=== PATIENT | female | born 2000 ===

== ENCOUNTER 2021-09-10 16:12 | Emergency (ER) | payer MEDICAID, SELFPAY ==
--- NOTE | ~2021-09-10 | XR_ITS ---
EXAMINATION: XR CHEST CLINICAL INFORMATION: Chest pressure. COMPARISON: None TECHNIQUE: 2 views of the chest were obtained. FINDINGS: No significant abnormality is noted involving the heart, lungs, mediastinum, bony thorax or soft tissues. XR/XR chest 2V IMPRESSION: Unremarkable examination.
[2021-09-10 17:40] VITALS: BP 129/53; PULSE 74; RESP 17; TEMP 37; O2SAT 95; BMI 19.5
--- NOTE | 2021-09-10 18:37 | ED.GENADULT ---
HPI - General Adult General Chief complaint: Ear Problems Stated complaint: Chest and ear pressure X1 Year Time Seen by Provider: 09/10/21 18:37 Source: patient Mode of arrival: ambulatory Limitations: no limitations History of Present Illness HPI narrative: Patient is a 21 year old female presenting to the emergency department today with chest pressure and ear congestion. Patient states that on and off for the last year, she has had chest pressure and ear congestion. Patient states that she has not been evaluated for this lately and when she called her PCP, they told her to report to the ED. Patient denies any current dizziness, lightheadedness, abdominal pain, nausea, vomiting, fever, chills, blurry vision, double vision, loss of vision, chest pain, difficulty breathing, shortness of breath, back pain, night sweats, pain with urination, increased urinary frequency, increased urinary urgency, blood in her urine or stool, vaginal discharge, vaginal bleeding, syncope or a near syncopal episode, recent trauma or falls, bowel incontinence, bladder incontinence, bowel retention, bladder retention, or any other complaints at this time. Onset (ago): year(s) Relieving factors: none Exacerbating factors: none Associated symptoms: denies other symptoms Treatments prior to arrival: none Related Data Allergies Allergy/AdvReac Type Severity Reaction Status Date / Time No Known Allergies Allergy Verified 09/10/21 18:56 Review of Systems Constitutional: Constitutional: Reports no additional constitutional complaints, Denies chills, Denies fever(s) and Denies night sweats Eyes: Eyes: Reports no additional eye complaints, Denies blurry vision, Denies change in vision, Denies diplopia, Denies eye discharge, Denies loss of vision and Denies eye pain ENT: Denies dizziness Cardiovascular: Cardiovascular: Reports no additional cardiovascular complaints, Denies chest pain, Denies lightheadedness, Denies Loss of Consciousness and Denies dyspnea Respiratory: Respiratory: Reports no additional respiratory complaints and Denies dyspnea Gastrointestinal: Gastrointestinal: Reports no additional gastrointestinal complaints, Denies abdominal pain, Denies melena, Denies hematochezia, Denies change in bowel habits and Denies change in stool character Genitourinary: Genitourinary: Denies hematuria, Denies urinary frequency, Denies dysuria, Denies urinary incontinence, Denies urinary hesitancy and Denies urinary urgency Musculoskeletal: Musculoskeletal: Reports no additional musculoskeletal complaints, Denies numbness and Denies tingling Neurologic: Denies dizziness, Denies loss of vision, Denies numbness and Denies tingling Psychiatric: Psychiatric: Reports no additional psychiatric complaints Endocrine: Endocrine: Reports no additional endocrine complaints Hematologic/Lymphatic: Hematologic/Lymphatic: Reports no additional hematologic/lymphatic complaints Allergic/Immunologic: Allergic/Immunologic: Reports no additional allergic/immunologic complaints [facility] [place] Past Medical History Attestation statement: The following information was validated with the patient. Source: old records reviewed Social History Social History Advance Directives: No Advance Directives Information Provided: No Physical Exam ED Vital Signs: Vital Signs - 24 hr 09/10/21 17:40 Temperature 98.6 F Pulse Rate 74 Respiratory Rate 17 Blood Pressure 129/53 L Pulse Oximetry 95 BMI result Body Mass Index 19.5 Const General: cooperative, no acute distress, alert and awake Nutritional Appearance: well nourished Orientation/consciousness: patient oriented x3 Limitations: no limitations HENMT Head: Yes normal to inspection and Yes atraumatic Ears: hearing grossly normal bilaterally and external ears normal General nose exam: Normal external nose present, no nasal discharge noted and no epistaxis Face and sinus: Yes normal facial exam, No abrasion and No laceration Mouth: Normal oral and palatal mucosa present, no drooling and no muffled voice Eyes General: appearance normal, both eyes and all related structures Periorbital: periorbital findings normal Eyelids: Yes eyelids normal Conjunctivae: conjunctivae normal Pupils: Equal, round and reactive pupils present EOM: EOMs intact bilaterally Neck Neck: Yes normal visual inspection, Yes full ROM and Yes no lymphadenopathy Chest Chest palpation & inspection: normal inspection of the chest Resp Effort & Inspection: normal respiratory effort and able to speak in complete sentences Cardio Rate: regular rate Rhythm: regular rhythm GI Inspection: Yes normal to inspection Neuro General: patient oriented x3 and moves all extremities Cranial nerves: Yes Equal, round and reactive pupils present Cognition (Neuro): normal cognition Motor exam (neuro): 5/5 motor strength present throughout Sensory Exam: Normal double simultaneous stimulation for sensation Coordination: [id number] test normal Extrem General: Yes normal to inspection, Yes full ROM and Yes capillary refill normal Psych Appearance: grossly normal Mental Status: mental status grossly normal Affect: normal affect Attitude: cooperative Thought process: Normal thought process present Thought content: Normal thought content present Insight: Good insight present (Psych) Medical Decision Making MDM Narrative Medical decision making narrative: Patient is a 21 year old female presenting to the emergency department today with chest pressure and ear pain. Patient's physical exam was unremarkable including a normal cardiac exam and HEENT exam. Patient's EKG was unremarkable. Patient's chest x-ray showed no acute process. I explained my physical exam findings as well as all test results to the patient. I answered all questions asked by the patient. I stressed the importance of the patient taking her medication as prescribed. I stressed the importance of the patient following up with her primary care provider and an ENT provider. I stressed the importance of the patient returning to the emergency department immediately if her symptoms were to worsen or if she were to develop any dizziness, shortness of breath, difficulty breathing, chest pain, blurry vision, loss of vision, nausea, vomiting, abdominal pain, fever, chills, back pain, or any other complaints. Patient verbalized agreement and understanding with this treatment plan and discharge. Differential Diagnosis Differential Diagnosis: atypical chest pain, ear pain Medical Records Medical records reviewed: Yes I reviewed the patient's medical records. ECG Data Attestation: I personally reviewed and interpreted this ECG as follows: Prior ECG tracings: not available for review Interpretation: Vent. Rate: 070 BPM ? ? Atrial Rate: 070 BPM P-R Int: 156 ms? QRS Dur: 086 ms QT Int: 386 ms ? ? ? P-R-T Axes: 065 076 059 degrees QTc Int: 416 ms Normal sinus rhythm with sinus arrhythmia Normal ECG No previous ECGs available Discharge Plan Discharge Clinical Impression: Acute ear pain, Chest pain Patient Disposition: Home, Self-Care Instructions: Chest Pain (ED), Chest Pain (DC), Earache (ED), Chest Wall Pain (ED) Additional Instructions: Call [phone] to follow up with an ENT specialist. Follow up with your primary care provider. Return to the emergency department immediately if your symptoms worsen or if you develop any dizziness, shortness of breath, difficulty breathing, chest pain, blurry vision, loss of vision, nausea, vomiting, abdominal pain, fever, chills, back pain, or any other complaints. Referrals: Syeda Danielle MD [Primary Care Provider] - 2 days Interventions: ED Discharge Assessment Last Done: 09/10/21 20:00 Discharge Date/Time: 09/10/21 20:02 Print Language: Irish
--- NOTE | 2021-09-10 18:56 | ECG_ITS ---
Test Reason : CHEST PRESSURE Blood Pressure : / mmHG Vent. Rate : 070 BPM Atrial Rate : 070 BPM P-R Int : 156 ms QRS Dur : 086 ms QT Int : 386 ms P-R-T Axes : 065 076 059 degrees QTc Int : 416 ms Normal sinus rhythm with sinus arrhythmia Normal ECG No previous ECGs available Referred By: Naomy Madsen Electronically Signed By:NELIDA LOPEZ
== END 2021-09-10 20:02 | disposition home or self-care (01) ==
PROVIDERS: Emergency Provider Emergency Medicine; PCP Internal Medicine
DX: R07.9 Chest pain, unspecified (principal); H92.03 Otalgia, bilateral
CPT/HCPCS: 71046; 93005; 99283; 99284

== ENCOUNTER 2024-03-19 11:55 | Emergency (ER) | payer OTHER, SELFPAY ==
[2024-03-19 11:58] VITALS: BP 123/80; PULSE 96; RESP 16; TEMP 36.8; O2SAT 99; BMI 21.0
--- NOTE | 2024-03-19 12:00 | ED.GENADULT ---
HPI - General Adult General Chief complaint: General Medical Stated complaint: Exposed to rabies Time Seen by Provider: 03/19/24 12:04 Source: patient Mode of arrival: ambulatory Limitations: no limitations History of Present Illness ED Provider: PAVEL PAL PA-C HPI narrative: 24 year old female with no significant pmhx presents to the ED today after rabies exposure. 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 Patient reports holding the cat numerous times. The cat did not bite/ scratch/ lick the patient. She currently has no physical complaints. She is requesting to be vaccinated for rabies at this time. Related Data Allergies Allergy/AdvReac Type Severity Reaction Status Date / Time No Known Allergies Allergy Verified 03/19/24 12:01 Review of Systems Review of Systems: Constitutional: No fever, chills, fatigue, night sweats, weight changes ENT/Mouth: No ear pain, hearing loss, nasal congestion, sinus pain, rhinorrhea, sore throat Eyes: No eye pain, swelling, redness, vision changes, discharge Cardio: No chest pain, palpitations, GAMBOA, orthopnea, peripheral edema Pulm: No SOB, cough, sputum, wheezing, dyspnea, hemoptysis GI: No nausea, vomiting, hematemesis, abdominal pain, diarrhea, constipation, hematochezia, melena : No irregular bleeding, dysuria, frequency, urgency, hesitancy, hematuria, flank pain, urinary flow changes, urinary incontinence or retention MSK: No back pain, neck pain, joint pain, myalgias Skin: No lesions, rashes Neuro: No weakness, numbness, paresthesias, LOC, dizziness, headache Psych: No anxiety/panic, depression, SI/HI, AH/VH All other systems reviewed and are negative. [facility] Past Medical History Attestation statement: The following information was validated with the patient. Source: old records reviewed and nursing notes reviewed Physical Exam ED Vital Signs: Vital Signs - 24 hr 03/19/24 11:58 03/19/24 14:26 03/19/24 14:26 Temperature 98.3 F 97.9 F 97.9 F Pulse Rate 96 98 98 Respiratory Rate 16 18 18 Blood Pressure 123/80 132/81 132/81 Pulse Oximetry 99 100 100 Oxygen Delivery Method Room Air Room Air Room Air BMI result Body Mass Index 21.0 Vital signs stable. General: Well appearing, in no acute distress. Skin: Warm, dry, intact. No rashes or lesions. Head: Normocephalic, atraumatic. EENT: Hearing is intact b/l. Conjunctiva clear. Sclera is anicteric. PERRLA. EOM intact. Moist mucous membranes.? Neck: Supple without LAD. FROM. Cardiac: Chest wall symmetric. RRR. Lungs: Normal respiratory effort without accessory muscle use. CTA bilaterally. Abdomen: Soft, non-tender, non-distended Back: No midline spinous or paraspinal tenderness. No step off deformity. Ext: Upper and lower extremities atraumatic, without tenderness, deformity, swelling or erythema. Full ROM throughout. Neuro: AOx3. Normal speech. Sensation intact to light touch. NV intact distally. Ambulating with steady gait. Psych: Appropriate mood and affect. Responds appropriately to questions. Medications Administered Discontinued Medications Generic Name Dose Route Start Last Admin Trade Name Freq PRN Reason Stop Dose Admin Rabies Immune Globulin 1,112 unit 03/19/24 12:06 03/19/24 13:56 Rabies Immune Globulin/Pf 900 Unit/3 Ml Vial 20 unit/kg (1112 unit) 03/19/24 12:07 1,112 unit IM Administration ONCE ONE Rabies Vaccine 1 ml 03/19/24 13:45 03/19/24 13:55 Rabies Vaccine (Pcec)/Pf 1 Ml Vial IM 03/19/24 13:46 1 ml .ONCE ONE Administration Rabies Vaccine Human Diploid Cell 1 ml 03/19/24 12:06 03/19/24 13:31 Rabies Vaccine, Human Diploid (Imovax) 1 Ml Vial IM 03/19/24 12:07 Not Given .ONCE ONE Medical Decision Making Medical Decision Making MDM Narrative: 24 year old female with no significant pmhx presents to the ED today after rabies exposure. Vital signs are stable. She is well appearing, in NAD. Exam benign. Given exposure 7-10 days ago with patient being asymptomatic, likelihood that patient has contracted rabies is very low. After discussion, patient would still like to receive the rabies vaccination series. I discussed risks vs benefits of vaccination with patient. She is agreeable with vaccination at this time. This was also discussed with my attending Dr. Strickland who feels as though vaccination is reasonable at this time. Plan: rabies series Differential Diagnosis Differential Diagnoses: The differential diagnosis associated with the presentation includes as above. Admission/Observation not indicated. Social Determinants Patient?s care significantly limited by Social Determinants of Health including: Other Social Determinant of Health Discharge Plan Discharge Clinical Impression: Exposure to rabies Patient Disposition: Home, Self-Care Instructions: Rabies Vaccine (By injection), Rabies Immune Globulin (By injection), Rabies (ED) Additional Instructions: You were evaluated in the ED today following rabies exposure. You were provided with rabies immune globulin and your first rabies vaccination. As discussed, you will have to continue following up with infusion center for subsequent vaccinations. Return with new or worsening symptoms. In the case of an emergency call [phone]. [place]ies [place] with [place] [facility] [place] Upon discharge from the ED today, you will be contacted by the Infusion Center to schedule your follow up Rabies vaccines. You will need a total of 3 more injections. If for some reason you do not receive a call, please call the Infusion Center directly at [phone]. Follow up with your primary care provider after completion of the vaccine to have a titer drawn to ensure the vaccines effectiveness. Stand Alone Forms: Work/School Release Interventions: ED Discharge Assessment Last Done: 03/19/24 14:26 Discharge Date/Time: 03/19/24 14:40 Print Language: Zambian
--- NOTE | 2024-03-19 13:22 | PC.NURSE ---
No rabies vaccinations available in [facility]. Calling pharmacy
--- NOTE | 2024-03-19 13:31 | PC.NURSE ---
Per pharmacy, no rabies vaccines in the hospital until tomorrow. Pt. receiving immune globulin here today and will follow up with infusion center. MARIALUISA Erickson explained this to pt. and pt. verbalizes understanding of discharge instructions.
[2024-03-19] MEDS: Rabies Vaccine (PCEC)/PF 1 ML VIAL IM (13:55)
[2024-03-19] MEDS: Rabies Immune Globulin/PF 900 UNIT/3 ML VIAL 1112 UNIT IM (13:56)
[2024-03-19 14:26] VITALS: BP 132/81; PULSE 98; RESP 18; TEMP 36.6; O2SAT 100
--- NOTE | 2024-03-19 14:40 | PC.NURSE ---
Animal bite reporting form faxed to [employer] at - [phone]
== END 2024-03-19 14:40 | disposition home or self-care (01) ==
PROVIDERS: Emergency Provider Emergency Medicine
DX: Z20.3 Contact with and (suspected) exposure to rabies (principal); Z23 Encounter for immunization
CPT/HCPCS: 90375; 90471; 90675; 96372; 99283; 99284

== ENCOUNTER 2024-04-02 07:30 | Outpatient (RCR) | payer OTHER, SELFPAY ==
[2024-03-22 07:45] VITALS: BP 113/73; PULSE 75; RESP 14; TEMP 36.2; O2SAT 100
[2024-03-22] MEDS: Rabies Vaccine, Human Diploid (Imovax) 1 ML VIAL IM (08:29)
[2024-03-26 07:30] VITALS: BP 125/67; PULSE 92; RESP 14; TEMP 36.1; O2SAT 99
[2024-03-26] MEDS: Rabies Vaccine (PCEC)/PF 1 ML VIAL IM (07:34)
[2024-04-02 07:44] VITALS: BP 107/74; PULSE 82; RESP 14; TEMP 36.2; O2SAT 100
[2024-04-02] MEDS: Rabies Vaccine (PCEC)/PF 1 ML VIAL IM (07:50)
== END 2024-04-02 07:55 | disposition home or self-care (01) ==
LOC: HO.INF 07:30
PROVIDERS: Visit Provider Physician Assistant Medical
DX: Z20.3 Contact with and (suspected) exposure to rabies (principal)
CPT/HCPCS: 90471; 90675

== ENCOUNTER 2024-10-16 19:26 | Inpatient (IN) | payer OTHER, SELFPAY ==
[2024-10-16 19:36] VITALS: BP 141/101; PULSE 109; RESP 18; O2SAT 97; BMI 18.9
--- NOTE | 2024-10-16 20:06 | ED.PSYCH ---
HPI - Psych General Chief Complaint: Psychiatric Symptoms Stated Complaint: SI/crisis Time Seen by Provider: 10/16/24 20:05 Source: patient Mode of arrival: ambulatory Limitations: no limitations History of Present Illness ED Provider: PAVEL PAL PA-C HPI Narrative: 24-year-old assigned female at presents to the ED today for evaluation of increased anxiety and suicidal ideation x days. Reports struggling with anxiety for the last few months, specifically in terms of his work environment. 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 He is having a crisis surrounding his future career path. Unsure what he is going to do with his life. States he would rather just jump off of his balcony. He has history of suicide attempts in the past, specifically in high school. He admits to being admitted psychiatrically during that time. He currently takes venlafaxine and Adderall. He was not taking either medication in 2 days due to decreased p.o. intake/appetite. Admits to daily marijuana use. Denies any other illicit substance use. Admits to occasional EtOH consumption, last consumed ETOH last night. Denies AH/VH/TH. Reports mild headache at present. No other physical concerns. Denies fever, chills, back pain, nausea or vomiting. Related Data Home Medications ?Medication ?Instructions ?Recorded ?Confirmed cyanocobalamin (vitamin B-12) 1,000 mcg PO DAILY 10/17/24 10/17/24 1,000 mcg tablet (Vitamin B-12) venlafaxine 150 mg 150 mg PO DAILY 10/17/24 10/17/24 capsule,extended release 24 hr venlafaxine 75 mg capsule,extended 75 mg PO DAILY 10/17/24 10/17/24 release 24 hr Allergies Allergy/AdvReac Type Severity Reaction Status Date / Time apple Allergy Itching Verified 10/16/24 19:43 carrot Allergy Itching Verified 10/16/24 19:43 Review of Systems Review of Systems: Yes all other systems are reviewed and are negative PMFSH Past Medical History Attestation statement: The following information was validated with the patient. Source: old records reviewed and nursing notes reviewed Social History Social History Household Members: Other Household Members Other:: cousin Housing: Apartment Do you presently have visiting nurse or other home services: No Patient Tobacco Use Status: Never used Tobacco Smoked in Last 30 Days: No e-Cigarette/Vaping Use: Never Used Patient Interested in Nicotine Replacement: No Patient Given Instructions on How to Stop Smoking: No Second Hand Smoke Exposure: No Use of substances other than those prescribed or required for medical reasons: Yes Substance Use Type: Marijuana Substance Use Frequency: Daily Last Used Substance: Just Prior to Admission Currently Displaying Signs/Symptoms of Drug Intoxication Withdrawal: No Any prior treatment program specific to substance use: No Have you been hit, kicked, punched, or otherwise hurt by someone within the past year? If so, by whom?: No Do you feel safe in your current relationship?: No Current Relationship Is there a partner from a previous relationship who is making you feel unsafe now?: No Are you made to feel afraid or neglected: No Spiritual Healthcare Practices: Singh- Islam Healthcare Practices: None Cultural Healthcare Practices: None Advance Directives: No Advance Directives Information Provided: No Do you have thoughts of harming others: None Do you have a plan to hurt others: No Plan Recently lost weight without trying: Unsure How much weight loss: Not applicable Eating poorly because of decreased appetite: No Nutrition screen score: 2 Nutrition Risks: No Nutritional Risk Patient : No : No Poor oral hygiene: No Physical Exam Vital Signs: Vital Signs: Last Vital Signs Temp 98.4 F 10/20/24 08:02 Pulse 105 H 10/20/24 08:02 Resp 16 10/19/24 20:00 BP 116/64 10/20/24 08:02 Pulse Ox 98 10/20/24 08:02 O2 Del Method Room Air 10/20/24 08:02 BMI result Body Mass Index 18.9 Vital signs stable General: Anxious appearing, restless Skin: Warm, dry, intact. No rashes or lesions. Head: Normocephalic, atraumatic. EENT: Hearing is intact b/l. Conjunctiva clear. Sclera is anicteric. Pupils dilated bilaterally. EOM intact. Moist mucous membranes.? Cardiac: Chest wall symmetric. RRR Lungs: Normal respiratory effort without accessory muscle use. CTA bilaterally. Back: No midline spinous or paraspinal tenderness. No step off deformity. Ext: Upper and lower extremities atraumatic, without tenderness, deformity, swelling or erythema. Neuro: AOx3. Normal speech. CN 2-12 grossly intact. Ambulating with steady gait. Psych: Pressured speech Course Course Course Narrative: 2051 -- CBC with leukocytosis to 13.3. No left shift. No anemia. H&H stable. Chemistry without acute electrolyte abnormality requiring intervention. No SHIRIN. Liver function at baseline. Urinalysis with trace blood, positive nitrites, small leukocyte esterase, over 50 WBCs, 4+ urine bacteria and 11-20 squamous epithelial cells. Urine toxicology positive for amphetamines and marijuana. Otherwise negative. > on further questioning of patient, he endorses increased urinary frequency and at least 1 episode of urinary incontinence due to this. Denies any vaginal discharge, fevers, abdominal or flank pain. Plan to treat for UTI. Macrobid ordered. > Tylenol ordered for reported headache Reevaluation(s) Reevaluation #1: Time: 06:27 Date: 10/17/24 Provider: Mello Simpson MD Start physician observation: Patient was been in the emergency department for 10 hours. Patient in physician observation for psychiatric evaluation.? Patient was waiting for care team evaluation. No acute events reported overnight. No current complaints. VS stable.? Patient was UA/microscopic did reveal high number of WBCs, squamous cells and bacteria. Patient did have urinary frequency with 1 episode of incontinence and he was on Macrobid. Urine culture at this time is pending. Will continue to monitor. Time: 07:59 Date: 10/17/24 Provider: Mello Simpson MD Patient was evaluated by the care team and I obtained the following information. The patient to jump off a balcony. Patient was had suicide attempts in the past therefore the patient was placed on a Section 12 and will be in in-patient bed search. Patient will remain in physician observation until disposition is determined or the patient's symptoms improve over time. Reevaluation #2: Time: 08:45 Date: 10/18/24 Provider: Javi Villar MD Patient in physician observation for psychiatric evaluation.? No acute events reported overnight. No current complaints. VS stable.? Patient is in bed search status/pending CARE team evaluation. Will continue to monitor. Reevaluation #3: Time: 12:49 Date: 10/19/24 Provider: Javi Villar MD Patient in physician observation for psychiatric evaluation.? No acute events reported overnight. No current complaints. VS stable.? Patient is in bed search status/pending CARE team evaluation. Will continue to monitor. Additional Reevaluation(s): Dr. Simpson's End Physician Observation Note: Physician observation ended on 10/19/2024 at 13:29. Patient to be admitted as inpatient to psychiatry. Medications Administered Generic Name Dose Route Start Last Admin Trade Name Freq PRN Reason Stop Dose Admin Cyanocobalamin 1,000 mcg 10/17/24 09:00 10/20/24 08:46 Cyanocobalamin (Vitamin B-12) 1,000 Mcg Tablet PO 1,000 mcg DAILY ATILIO Administration Hydroxyzine HCl 25 mg 10/19/24 12:53 10/19/24 21:03 Hydroxyzine Hcl 25 Mg Tablet PO 25 mg Q6H PRN Administration mild anxiety Nitrofurantoin Macrocrystals 100 mg 10/16/24 21:00 10/20/24 08:47 Nitrofurantoin Monohyd/M-Cryst 100 Mg Capsule PO 100 mg BID ATILIO Administration Ondansetron HCl 4 mg 10/17/24 11:58 10/19/24 08:03 Ondansetron Odt 4 Mg Tab.Rapdis TRANSLINGU 4 mg Q6H PRN Administration Nausea and Vomiting Trazodone HCl 50 mg 10/19/24 12:53 10/19/24 21:04 Trazodone Hcl 50 Mg Tablet PO 50 mg BEDTIME MRX1 PRN Administration Insomnia Venlafaxine HCl 75 mg 10/17/24 09:00 10/20/24 08:47 Venlafaxine Hcl Er 75 Mg Cap.Er.24h PO 75 mg DAILY ATILIO Administration Venlafaxine HCl 150 mg 10/17/24 09:00 10/20/24 08:47 Venlafaxine Hcl Er 150 Mg Cap.Er.24h PO 150 mg DAILY ATILIO Administration Discontinued Medications Generic Name Dose Route Start Last Admin Trade Name Freq PRN Reason Stop Dose Admin Acetaminophen 975 mg 10/16/24 20:55 10/16/24 20:55 Acetaminophen 325 Mg Tablet PO 10/16/24 20:56 Not Given ONCE ONE Lorazepam 1 mg 10/17/24 20:49 10/17/24 21:19 Lorazepam 1 Mg Tablet PO 10/17/24 20:50 1 mg ONCE ONE Administration Lorazepam 1 mg 10/18/24 22:20 10/18/24 22:39 Lorazepam 1 Mg Tablet PO 10/18/24 22:21 1 mg ONCE ONE Administration Ondansetron HCl 4 mg 10/17/24 11:33 10/17/24 12:05 Ondansetron Odt 4 Mg Tab.Sukhi TAVERAS 10/17/24 11:34 4 mg ONCE ONE Administration Medical Decision Making Medical Decision Making MDM Narrative: 24-year-old assigned female at presents to the ED today for evaluation of increased anxiety and suicidal ideation x days. Differential diagnosis includes anemia, electrolyte abnormality, mood disorder, anxiety, depression, SI, polysubstance abuse Presentation not consistent with acute organic causes to include delirium, dementia or drug induced disorders (acute ingestions or withdrawal; no evidence of toxidrome).? Given the H&P, I suspect this patient is suicidal and will require observation. Will consult care team to evaluate the patient. Will also obtain labs for medical clearance. Plan: labs, EKG, ASA/APAP levels, ETOH level, UDS, care team consultation, reassessment Differential Diagnosis Differential Diagnoses: The differential diagnosis associated with the presentation includes As above Admission/Observation Consideration of admission/observation: Escalation of care including admission/observation considered Lab Data 10/16/24 20:25 10/16/24 20:26 Labs: Lab Results 10/16/24 10/16/24 10/16/24 Range/Units 20:25 20:26 20:27 WBC 13.3 H (4.8-10.8) X10*3/uL RBC 4.60 (4.20-5.50) X10*6/uL Hgb 13.7 (12.0-16.0) g/dl Hct 39.8 (37.0-47.0) % MCV 86.5 (80.0-98.0) fL MCH 29.8 (27.0-33.0) pg MCHC 34.4 (31.0-35.0) g/dl RDW 12.4 (11.0-16.0) % Plt Count 288 (160-400) X10*3/uL MPV 12.7 H (9.4-12.3) fL Immature Gran % (Auto) 0.3 (0.0-0.4) % Neut % (Auto) 75.3 H (45-73) % Lymph % (Auto) 17.5 L (20-40) % Callahan % (Auto) 4.1 (2-11) % Eos % (Auto) 2.3 (0-4) % Baso % (Auto) 0.5 (0-2) % Lymph # (Auto) 2.3 (1.2-4.9) X10*3/uL [place]ahan # (Auto) 0.5 (0.1-1.2) X10*3/uL Eos # (Auto) 0.3 (0.0-0.4) X10*3/uL Baso # (Auto) 0.1 (0.0-0.2) X10*3/uL Abs Immat Gran (auto) 0.04 H (0.00-0.03) X10*3/uL Absolute Neuts (auto) 10.0 H (2.0-8.3) x10*3/uL Absolute Nucleated RBC 0.000 (0.0-0.012) X10*3/uL Nucleated RBC % (auto) 0.0 (0.0-0.2) /100WBC Sodium 140 (135-145) mmol/L Potassium 3.5 (3.3-5.1) mmol/L Chloride 106 (96-108) mmol/L Carbon Dioxide 22 (22-29) mmol/L Anion Gap 16 (12-20) BUN 7 L (9-16) mg/dL Creatinine 0.71 (0.5-1.4) mg/dL Estim Creat Clear Calc 94.5 Estimated GFR > 60 Random Glucose 80 (60-115) mg/dL Calcium 9.7 (8.4-10.2) mg/dL Magnesium 2.0 (1.6-2.6) mg/dL Total Bilirubin 0.4 (0.0-1.0) mg/dL AST 25 (5-31) U/L ALT 15 (0-31) U/L Alkaline Phosphatase 82 (39-117) U/L Total Protein 8.4 H (6.5-8.0) g/dL Albumin 4.8 (3.5-5.0) g/dL Lipase 11 (8-78) U/L Urine Color Dark Yellow Urine Appearance Turbid Urine pH 6.0 (5.0-9.0) Ur Specific [place] >= 1.030 H (1.005-1.025) Urine Protein 30 (1+) H (Neg-Trace) mg/dL Urine Glucose (UA) Negative (Negative) mg/dL Urine Ketones 80 (Negative) mg/dL Urine Blood Trace H (Negative) Urine Nitrite Positive H (Negative) Ur Leukocyte Esterase Small (1+) H (Negative) Urine RBC 3-5 H (0-2) /HPF Urine WBC >50 H (0-5) /HPF Ur Squamous Epith Cells 11-20 (0-2) /HPF Urine Bacteria 4+ (None Seen) Hyaline Casts 0-2 (0-2) /LPF Urine Test NEGATIVE (NEGATIVE) Salicylates < 5.0 L (15-30) mg/dL Urine Opiates Screen Not Detected (Not Detect) Ur Buprenorphine Scrn Not Detected (Not Detect) ng/mL Ur Oxycodone Screen Not Detected (Not Detect) ng/mL Urine Methadone Screen Not Detected (Not Detect) ng/mL Urine Fentanyl Screen Not Detected (Not Detect) Acetaminophen < 3 (<30) mcg/mL Ur Barbiturates Screen Not Detected (Not Detect) Ur Phencyclidine Scrn Not Detected (Not Detect) Ur Amphetamines Screen POSITIVE H (Not Detect) U Benzodiazepines Scrn Not Detected (Not Detect) Urine Cocaine Screen Not Detected (Not Detect) U Marijuana (THC) Screen POSITIVE H (Not Detect) Ethyl Alcohol < 10 mg/dL External Record Review External record reviewed: Inpatient record Social Determinants Patient?s care significantly limited by Social Determinants of Health including: Other Social Determinant of Health Critical Care Time Critical Care Time Critical Care Time: No Discharge Plan Discharge Clinical Impression: Acute anxiety, Suicidal ideation Patient Disposition: Admitted As Inpatient Discharge Date/Time: 10/19/24 13:29
[2024-10-16 20:14] VITALS: BP 119/81; PULSE 92; RESP 16; TEMP 36.4; O2SAT 100
[2024-10-16 20:34] LABS: MANUAL DIFF FLAG NO
[2024-10-16 20:36] LABS: Basophils Absolute Auto 0.1 X10*3/uL (0.0-0.2); Basophils Percent Auto 0.5 % (0-2); Eosinophils Absolute Auto 0.3 X10*3/uL (0.0-0.4); Eosinophils Percent Auto 2.3 % (0-4); Hematocrit 39.8 % (37.0-47.0); Hemoglobin 13.7 g/dl (12.0-16.0); Imm Gran Abs Auto 0.04 X10*3/uL (0.00-0.03); Imm Gran Pct Auto 0.3 % (0.0-0.4); Lymphocytes Absolute Auto 2.3 X10*3/uL (1.2-4.9); Lymphocytes Percent Auto 17.5 % (20-40); Mean Corpuscular HGB Conc 34.4 g/dl (31.0-35.0); Mean Corpuscular Hemoglobin 29.8 pg (27.0-33.0); Mean Corpuscular Volume 86.5 fL (80.0-98.0); Mean Platelet Volume 12.7 fL (9.4-12.3); Monocytes Absolute Auto 0.5 X10*3/uL (0.1-1.2); Monocytes Percent Auto 4.1 % (2-11); Neutrophils Percent Auto 75.3 % (45-73); Platelet Count 288 X10*3/uL (160-400); Red Cell Distribution Width 12.4 % (11.0-16.0); White Blood Count 13.3 X10*3/uL (4.8-10.8)
[2024-10-16 20:38] LABS: Appearance Urine Turbid; Color Urine Dark Yellow; Glucose Urine UA Negative (Negative); Leukocyte Esterase Urine Small (1+) (Negative); Nitrite Urine Positive (Negative); Specific Gravity - Urine >= 1.030 (1.005-1.025); UMIC TRIGGER UACC YES; UPreg QC Valid YES; Urine Blood Trace (Negative); Urine Ketones 80 mg/dL (Negative); Urine Pregnancy NEGATIVE (NEGATIVE); Urine Protein 30 (1+) mg/dL (Neg-Trace)
[2024-10-16 20:43] LABS: Bacteria Urine 4+ (None Seen); Hyaline Casts Urine 0-2 /LPF (0-2); UACC Culture Trigger YES; WBC Urine >50 /HPF (0-5)
[2024-10-16 20:47] LABS: Amphetamine Screen Urine POSITIVE (Not Detect); Barbiturates, Urine Not Detected (Not Detect); Benzodiazepines Screen Urine Not Detected (Not Detect); Buprenorphine Scr Not Detected (Not Detect); Cannabinoid Screen Urine POSITIVE (Not Detect); Cocaine Screen Urine Not Detected (Not Detect); Fentanyl, urine Not Detected (Not Detect); Methadone Screen, Urine Not Detected (Not Detect); Opiate Screen Urine Not Detected (Not Detect); Oxycodone Screen Urine Not Detected (Not Detect); Phencyclidine Screen Urine Not Detected (Not Detect)
[2024-10-16 21:09] LABS: Acetaminophen LAB < 3 mcg/mL (<30); Alanine Aminotransferase 15 U/L (0-31); Albumin Level 4.8 g/dL (3.5-5.0); Alkaline Phosphatase 82 U/L (39-117); Anion Gap 16 (12-20); Aspartate Amino Transferase 25 U/L (5-31); Bilirubin Total 0.4 mg/dL (0.0-1.0); Blood Urea Nitrogen 7 mg/dL (9-16); Calcium 9.7 mg/dL (8.4-10.2); Carbon Dioxide 22 mmol/L (22-29); Chloride 106 mmol/L (96-108); Creatinine Clr Calc Pharmacy 94.5; Estimated Glomerular Filt Rate > 60; Ethanol < 10 mg/dL; Glucose Random 80 mg/dL (60-115); Potassium 3.5 mmol/L (3.3-5.1); Salicylate < 5.0 mg/dL (15-30); Sodium 140 mmol/L (135-145); Total Protein 8.4 g/dL (6.5-8.0)
[2024-10-16 21:18] LABS: Lipase 11 U/L (8-78)
[2024-10-16] MEDS: Nitrofurantoin Monohyd/M-Cryst 100 MG CAPSULE PO (21:25)
[2024-10-17 06:36] VITALS: BP 112/72; PULSE 96; RESP 16; TEMP 37.1; O2SAT 98
--- NOTE | 2024-10-17 07:15 | PC.NURSE ---
Assumed care of patient at 0645, patient appears to be in no apparent distress this am, sleeping, respirations even and unlabored. Continue plan of care for CARE team alfonso
--- NOTE | 2024-10-17 08:03 | PHA.MEDREC ---
Pharmacy Consult ? Medication Reconciliation Pharmacy has completed the medication reconciliation. Reviewed med rec done by nursing, matches claim history
[2024-10-17] MEDS: Venlafaxine HCl ER 75 MG CAP.ER.24H PO (08:11)
[2024-10-17] MEDS: Nitrofurantoin Monohyd/M-Cryst 100 MG CAPSULE PO ×2 (08:11→21:19)
[2024-10-17] MEDS: Cyanocobalamin (Vitamin B-12) 1,000 MCG TABLET 1000 MCG PO (08:11)
[2024-10-17] MEDS: Venlafaxine HCl ER 150 MG CAP.ER.24H PO (08:11)
[2024-10-17] MEDS: Ondansetron ODT 4 MG TAB.RAPDIS TRANSLINGU (12:05)
[2024-10-17 14:43] VITALS: BP 131/82; PULSE 101; RESP 16; TEMP 36.7; O2SAT 100
--- NOTE | 2024-10-17 14:44 | PC.NURSE ---
Pt provided with coloring pages, word searches and books
--- NOTE | 2024-10-17 20:33 | PC.NURSE ---
pt got off the phone, very distraught, requesting a sedative
[2024-10-17] MEDS: LORazepam 1 MG TABLET PO (21:19)
--- NOTE | 2024-10-17 21:20 | PC.NURSE ---
pt showered, feels a little better. pt medicated per MAR
[2024-10-18 05:49] VITALS: BP 119/82; PULSE 88; RESP 16; TEMP 36.5; O2SAT 97
--- NOTE | 2024-10-18 06:33 | PC.NURSE ---
pt resting comfortably throughout the night, no apparent distress noted at this time
--- NOTE | 2024-10-18 07:48 | PC.NURSE ---
Assumed care of patient at 0645, patient appears to be in no apparent distress this am, calm and cooperative, offering no complaints. Continue plan of care for IPLOC
[2024-10-18] MEDS: Venlafaxine HCl ER 150 MG CAP.ER.24H PO (08:50)
[2024-10-18] MEDS: Venlafaxine HCl ER 75 MG CAP.ER.24H PO (08:50)
[2024-10-18] MEDS: Nitrofurantoin Monohyd/M-Cryst 100 MG CAPSULE PO ×2 (08:51→20:37)
[2024-10-18] MEDS: Cyanocobalamin (Vitamin B-12) 1,000 MCG TABLET 1000 MCG PO (08:51)
[2024-10-18] MEDS: Ondansetron ODT 4 MG TAB.RAPDIS TRANSLINGU (14:27)
[2024-10-18 15:42] VITALS: BP 116/84; PULSE 67; RESP 16; TEMP 36.8; O2SAT 97
[2024-10-18 20:25] VITALS: BP 124/81; PULSE 94; RESP 18; TEMP 36.5; O2SAT 97
[2024-10-18] MEDS: LORazepam 1 MG TABLET PO (22:39)
[2024-10-19 06:13] VITALS: RESP 16
--- NOTE | 2024-10-19 06:37 | PC.NURSE ---
Patient slept through the night, no distress observed/reported, meds and meals compliant, disposition per care team is section 12 inpatient bed search, no behavior and safety concerns at this time, will continue to monitor.
[2024-10-19] MEDS: Cyanocobalamin (Vitamin B-12) 1,000 MCG TABLET 1000 MCG PO (08:00)
[2024-10-19] MEDS: Venlafaxine HCl ER 75 MG CAP.ER.24H PO (08:00)
[2024-10-19] MEDS: Venlafaxine HCl ER 150 MG CAP.ER.24H PO (08:00)
[2024-10-19] MEDS: Nitrofurantoin Monohyd/M-Cryst 100 MG CAPSULE PO ×2 (08:00→21:00)
[2024-10-19] MEDS: Ondansetron ODT 4 MG TAB.RAPDIS TRANSLINGU (08:03)
--- NOTE | 2024-10-19 09:07 | ECG_ITS ---
Test Reason : check qt interval Blood Pressure : */* mmHG Vent. Rate : 104 BPM Atrial Rate : 104 BPM P-R Int : 134 ms QRS Dur : 84 ms QT Int : 342 ms P-R-T Axes : 66 78 60 degrees QTcB Int : 449 ms Sinus tachycardia Possible Left atrial enlargement Borderline ECG When compared with ECG of 10-Sep-2021 19:32, Vent. rate has increased by 34 bpm Referred By: Seble Betancourt Electronically Signed By: NELIDA LOPEZ
[2024-10-19 15:22] VITALS: BMI 18.7
[2024-10-19 15:23] VITALS: BP 122/80; PULSE 99; RESP 18; TEMP 36.7; O2SAT 98
--- NOTE | 2024-10-19 16:29 | PC.NURSE ---
Addendum entered by Yessy Castellanos RN 10/19/24 18:55: Skin and safety check performed and multiple scabbed area to lower legs noted from pt reporting excessive hair tweezing and plucking otherwise unremarkable. Original Note: Blanca jacinto by Narayan, is a 24 year old assigned female at but identifies as male, uses they/he pronouns, was admitted from the POD to [facility] at 1:30 with diagnosis of SI and depression. Narayan has a hx of MDD, anxiety, panic attacks, SIB (cutting), tweezing/picking hairs on body for hours ,? ADHD, costochondritis, seasonal allergies, and daily marijuana abuse. They last cut in 2020 and reports they now compulsively skin pick/tweeze. Narayan mentioned experiencing?panic attacks that consist of screaming like a baby, becoming non verbal, and sometimes dissociating. They shared that a weighted blanket, doing art, and talking to trusted staff are helpful during these times. 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 balcony. They report their cousin (and roommate) Thi brought them to the ED? 10/16 due to feeling suicidal. Since being back on medication? they are no longer feeling suicidal. In addition to being back on meds, Narayan expressed they? like being taken care of ? and being in a supportive environment is helping them stabilize. They were cooperative and pleasant during admission, signed a CV with Dr Blackman and signed PIERO for their PCP, therapist, and psychiatrist. Oriented to the unit and menu selection performed. During completion of Safety Tool they realized that Springtime is a trigger for them as they back in spring. They have experience with being in IOP and PHP at [facility] and are hopeful that being here will help them get back on track.?
[2024-10-19 20:00] VITALS: BP 128/80; PULSE 100; RESP 16; TEMP 36.8; O2SAT 98
[2024-10-19] MEDS: hydrOXYzine HCL 25 MG TABLET PO (21:03)
[2024-10-19] MEDS: traZODone HCL 50 MG TABLET PO (21:04)
[2024-10-20 08:02] VITALS: BP 116/64; PULSE 105; TEMP 36.9; O2SAT 98
[2024-10-20] MEDS: Cyanocobalamin (Vitamin B-12) 1,000 MCG TABLET 1000 MCG PO (08:46)
[2024-10-20] MEDS: Venlafaxine HCl ER 150 MG CAP.ER.24H PO (08:47)
[2024-10-20] MEDS: Nitrofurantoin Monohyd/M-Cryst 100 MG CAPSULE PO ×2 (08:47→20:38)
[2024-10-20] MEDS: Venlafaxine HCl ER 75 MG CAP.ER.24H PO (08:47)
[2024-10-20 08:56] LABS: Estimated Average Glucose 91 mg/dL; Hemoglobin A1C 100.9486 umol/L; Hemoglobin A1c % 4.8 % (<6.0); Total Hemoglobin (HGBA1C) 3494.0713 umol/L
[2024-10-20 09:11] LABS: Cholesterol 196 mg/dL (<200); HDL Cholesterol 57 mg/dL (>40); LDL Cholesterol Calculated 114 mg/dL (<100); Magnesium 2.2 mg/dL (1.6-2.6); Triglycerides 125 mg/dL (<150)
[2024-10-20 09:28] LABS: Free T4 (Free Thyroxine) 1.46 ng/dL (0.71-1.85); Thyroid Stimulating Hormone 0.92 uIU/mL (0.32-4.0)
[2024-10-20 09:40] LABS: Folate 10.1 ng/mL (> or = 4.0); Vitamin B12 1253 pg/mL (200-900)
--- NOTE | 2024-10-20 10:01 | HO.PSYADMNOT ---
HPI Date of Service: 10/20/24 Chief Complaint: Anxiety, SI Sources of Information: patient interviewed, chart reviewed and crisis/core team assessment reviewed Additional Sources of Information: Seen 1130am HPI Subjective Notes: Bellamy Warning and Conditional Voluntary Healthcare Proxy: No Guardianship: No Medical Problems Affecting Mental Status: No Narrative: 24 yo assigned female at who identifies as male and uses they/them/their pronouns. Pt to ER with SI and plan to jump from a balcony, accompanied with anxiety, excoriation sx. Identifies precipitants as difficulty with work, stopping eating and medicine for ~2 days prior to admission and experiencing difficulty with interpersonal relationships. They are uncertain about what they want for their future. 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 Also reports some difficulty finding connections with others. Fears she will not be included and believes this may originate from being bullied in fifth grade. ADHD diagnosed at age 19, wonders if she has ASD. Past Psychiatric History: suicide attempt x 1-cutting in high school. SIBS started with bullying in fifth grade IP: 2 in [place] OP: [facility] with [facility]- Edna Major [phone]; Meds with Dr. Lozoya of [facility] [phone] Hx PHP Medical Evaluation Reviewed: Yes [facility] Medical History (Updated 10/21/24 @ 18:28 by Aurelia Hodgson, SOLUTIONS ENGINEER) Cannabis dependence ADHD PTSD (post-traumatic stress disorder) Family History: affirms Social History: Born in [place], raised in [place], passed between mom, dad and aunt. Mother is in [facility], they have minimal contact, dad is local. 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 Has a partner of 3 months who they are struggling with Substance History: Reports dependence on cannabis Trauma History: affirms Diagnostics Vital Signs (24Hr): Vital Signs - 24 hr 10/19/24 15:23 10/19/24 20:00 10/20/24 08:02 Temperature 98.0 F 98.2 F 98.4 F Pulse Rate 99 100 105 H Respiratory Rate 18 16 Blood Pressure 122/80 128/80 116/64 Pulse Oximetry 98 98 98 Oxygen Delivery Method Room Air Room Air Room Air BMI result Body Mass Index 18.7 Labs 10/16/24 20:25 10/16/24 20:26 Labs: Laboratory Results - last 48 hr 10/20/24 08:35 Estimat Average Glucose 91 Hemoglobin A1c % 4.8 Magnesium 2.2 Triglycerides 125 Cholesterol 196 LDL Cholesterol, Calc 114 H HDL Cholesterol 57 Vitamin B12 1253 H Folate 10.1 TSH 0.92 Free T4 1.46 Meds/Allergies Meds Home Medications ?Medication ?Instructions ?Recorded ?Confirmed ?Type cyanocobalamin (vitamin B-12) 1,000 mcg PO DAILY 10/17/24 10/17/24 History 1,000 mcg tablet (Vitamin B-12) venlafaxine 150 mg 150 mg PO DAILY 10/17/24 10/17/24 History capsule,extended release 24 hr venlafaxine 75 mg capsule,extended 75 mg PO DAILY 10/17/24 10/17/24 History release 24 hr Allergies Allergies Allergy/AdvReac Type Severity Reaction Status Date / Time apple Allergy Itching Verified 10/16/24 19:43 carrot Allergy Itching Verified 10/16/24 19:43 Mental Status Exam Mental Status Exam Patient Appearance: Appropriate Patient Orientation: Person, Place, Time and Situation Level of Consciousness: Alert Patient Behavior: Talkative and Good Eye Contact Mood Description: Anxious and Apprehensive Affect Description: Anxious and Apprehensive Patient Cognition Impaired: No Ability to Follow Directions: Good Speech Pattern: Spontaneous Speech Memory Description: Intact Hallucinations: None Delusions: Not Present Perceptual Disturbances: Depersonalization and Derealization Thought Process: Rumination Thought Content: positive for Circumstantial, positive for Perseveration and positive for Suicidal Ideation (denies on admit) Depressive Symptoms: Thoughts of /Suicide (denies on admit) and Low Self Esteem Judgement: Fair Assessment & Plan Assessment & Plan (1) PTSD (post-traumatic stress disorder): Status: Acute Code(s): F43.10 - Post-traumatic stress disorder, unspecified (2) ADHD: Status: Acute Code(s): F90.9 - Attention-deficit hyperactivity disorder, unspecified type (3) Cannabis dependence: Status: Acute Code(s): F12.20 - Cannabis dependence, uncomplicated Plan Admit, CV, 15 minute checks Pt asks not to use stimulant as they only use it when working. Collateral Contact Encourage milieu participation Pt has interest in PHP upon discharge Diagnostics as needed. Patient educated on: therapeutic strategies Informed Consent: understands Reason for continued inpatient stay Substantial Risk for: rapid decompensation Statement Statement: I have reviewed the history and physical and performed a pertinent examination on my patient. No changes have occurred unless specified. If the History and Physical was not performed prior to admission, the Hospitalist's service will be consulted for completing the admission physical. Time Spent With Patient Time: Total time managing care of this patient today ____ minutes.
[2024-10-20] MEDS: Ondansetron ODT 4 MG TAB.RAPDIS TRANSLINGU (18:53)
[2024-10-20 20:00] VITALS: BP 114/68; PULSE 91; TEMP 36.9; O2SAT 98
[2024-10-20] MEDS: diphenhydrAMINE HCL 25 MG CAPSULE 50 MG PO (20:38)
[2024-10-20] MEDS: OLANZapine 2.5 MG TABLET PO (20:38)
[2024-10-21 08:00] VITALS: BP 109/69; PULSE 73; RESP 16; TEMP 36.2; O2SAT 99
[2024-10-21] MEDS: Cyanocobalamin (Vitamin B-12) 1,000 MCG TABLET 1000 MCG PO (08:36)
[2024-10-21] MEDS: Venlafaxine HCl ER 150 MG CAP.ER.24H PO (08:36)
[2024-10-21] MEDS: Venlafaxine HCl ER 75 MG CAP.ER.24H PO (08:36)
[2024-10-21] MEDS: Nitrofurantoin Monohyd/M-Cryst 100 MG CAPSULE PO ×2 (08:36→22:06)
[2024-10-21 20:00] VITALS: BP 112/74; PULSE 106; RESP 16; TEMP 37; O2SAT 99
--- NOTE | 2024-10-21 21:19 | HO.PSYCHPN ---
Subjective Subjective Date of Service: 10/21/24 Reason For Visit: Anxiety, SI Subjective Notes: Conditional Voluntary Healthcare Proxy: No Guardianship: No Medical Problems Affecting Mental Status: No Interim History: Denies SI,HI,AH,VH. No sx of acute nhan or psychosis. Hoping to return to [facility] as they are known there and has alliances. Team is in process of referral. Pt asking to return home to cousin's house. She reports she has kittens to care for and is wanting to return to her life. Pt has declined family contact with mother and cousin. I will talk with them myself. No calls received from family to discuss pt's treatment planning. Discussed FMLA. We will complete paperwork as needed. Pt will contact their employer to instruct them to send paperwork over. Looking for nutrition to consult. This will need to be an out pt consult-insurance requests PCP refer pt. Would like Olanapine prn upon discharge. Discussed efficacy in helping pt with grounding. Medication Compliance: Yes Side effects from medications: No Attending Groups: Yes Review of Systems Acute medical concerns: No Medical Review of Systems: unchanged Review of Systems Review of Systems Zofran for nausea with efficacy per pt report. Mental Status Exam Mental Status Exam Patient Appearance: Appropriate Patient Orientation: Person, Place, Time and Situation Level of Consciousness: Alert Patient Behavior: Talkative and Good Eye Contact Mood Description: Appropriate Affect Description: Appropriate Patient Cognition Impaired: No Ability to Follow Directions: Good Speech Pattern: Spontaneous Speech Memory Description: Intact Hallucinations: None Delusions: Not Present Perceptual Disturbances: Depersonalization and Derealization Thought Process: Intact Thought Content: positive for Intact, positive for Circumstantial and positive for Suicidal Ideation (denies on admit) Depressive Symptoms: Thoughts of /Suicide (denies on admit) Judgement: Good Diagnostics Vital Signs (24Hr): Vital Signs - 24 hr 10/21/24 08:00 Temperature 97.1 F Pulse Rate 73 Respiratory Rate 16 Blood Pressure 109/69 Pulse Oximetry 99 Oxygen Delivery Method Room Air BMI result Body Mass Index 18.7 Labs 10/16/24 20:25 10/16/24 20:26 Labs: Laboratory Results - last 48 hr 10/20/24 08:35 Estimat Average Glucose 91 Hemoglobin A1c % 4.8 Magnesium 2.2 Triglycerides 125 Cholesterol 196 LDL Cholesterol, Calc 114 H HDL Cholesterol 57 Vitamin B12 1253 H Folate 10.1 TSH 0.92 Free T4 1.46 Medications Medications Current Medications Acetaminophen (Acetaminophen 325 Mg Tablet) 650 mg PO Q6H PRN PRN Reason: Headache/Pain, Scale 1-10 Al Hydroxide/Mg Hydroxide (Magnesium Hydrox/Alum Hydrox 30 Ml Oral.Susp) 30 ml PO Q6H PRN PRN Reason: Heartburn/Nausea Cyanocobalamin (Cyanocobalamin (Vitamin B-12) 1,000 Mcg Tablet) 1,000 mcg PO DAILY [facility] Last Admin: 10/21/24 08:36 Dose: 1,000 mcg Diphenhydramine HCl (Diphenhydramine Hcl 25 Mg Capsule) 50 mg PO BEDTIME PRN PRN Reason: sleep Last Admin: 10/20/24 20:38 Dose: 50 mg Hydroxyzine HCl (Hydroxyzine Hcl 25 Mg Tablet) 25 mg PO Q6H PRN PRN Reason: mild anxiety Last Admin: 10/19/24 21:03 Dose: 25 mg Magnesium Hydroxide (Milk Of Magnesia 30 Ml Oral.Susp) 30 ml PO DAILY PRN PRN Reason: Constipation Nicotine Polacrilex (Nicotine Polacrilex 2 Mg Gum) 4 mg BUCCAL Q2H PRN PRN Reason: Nicotine Cravings Nitrofurantoin Macrocrystals (Nitrofurantoin Monohyd/M-Cryst 100 Mg Capsule) 100 mg PO BID [facility] Last Admin: 10/21/24 08:36 Dose: 100 mg Olanzapine (Olanzapine 2.5 Mg Tablet) 2.5 mg PO BID PRN PRN Reason: picking/excoriation sx Last Admin: 10/20/24 20:38 Dose: 2.5 mg Ondansetron HCl (Ondansetron Odt 4 Mg Tab.Rapdis) 4 mg TRANSLINGU Q6H PRN PRN Reason: Nausea and Vomiting Last Admin: 10/20/24 18:53 Dose: 4 mg Venlafaxine HCl (Venlafaxine Hcl Er 75 Mg Cap.Er.24h) 75 mg PO DAILY [facility] Last Admin: 10/21/24 08:36 Dose: 75 mg Venlafaxine HCl (Venlafaxine Hcl Er 150 Mg Cap.Er.24h) 150 mg PO DAILY [facility] Last Admin: 10/21/24 08:36 Dose: 150 mg Allergies Allergies Allergy/AdvReac Type Severity Reaction Status Date / Time apple Allergy Itching Verified 10/16/24 19:43 carrot Allergy Itching Verified 10/16/24 19:43 Assessment & Plan Assessment & Plan (1) PTSD (post-traumatic stress disorder): Status: Acute Code(s): F43.10 - Post-traumatic stress disorder, unspecified (2) ADHD: Status: Acute Code(s): F90.9 - Attention-deficit hyperactivity disorder, unspecified type (3) Cannabis dependence: Status: Acute Code(s): F12.20 - Cannabis dependence, uncomplicated Plan Admit, CV, 15 minute checks Pt asks not to use stimulant as they only use it when working. Collateral Contact Encourage milieu participation Pt has interest in PHP upon discharge Diagnostics as needed. 10/21: Continue Olanzapine prn Discharge 10/23. Reason for continued inpatient stay Substantial Risk for: rapid decompensation Time Spent With Patient Time: Total time managing care of this patient today ____ minutes.
[2024-10-21] MEDS: OLANZapine 2.5 MG TABLET PO (22:06)
[2024-10-21] MEDS: diphenhydrAMINE HCL 25 MG CAPSULE 50 MG PO (22:08)
[2024-10-22 07:40] VITALS: BP 98/55; PULSE 89; TEMP 36.2; O2SAT 98
[2024-10-22] MEDS: Cyanocobalamin (Vitamin B-12) 1,000 MCG TABLET 1000 MCG PO (08:52)
[2024-10-22] MEDS: Venlafaxine HCl ER 150 MG CAP.ER.24H PO (08:52)
[2024-10-22] MEDS: Nitrofurantoin Monohyd/M-Cryst 100 MG CAPSULE PO ×2 (08:52→20:20)
[2024-10-22] MEDS: Venlafaxine HCl ER 75 MG CAP.ER.24H PO (08:52)
[2024-10-22] MEDS: OLANZapine 2.5 MG TABLET PO ×2 (09:10→21:17)
--- NOTE | 2024-10-22 09:40 | P.PNPSI_ITS ---
Subjective Subjective Date of Service: 10/22/24 Reason For Visit: Anxiety, SI Subjective Notes: Conditional Voluntary Healthcare Proxy: No Guardianship: No Medical Problems Affecting Mental Status: No Interim History: Preparing for discharge. Denies SI,HI,AH,VH Declines family contact prior to discharge- I will talk with them Looking into PHP with [facility]. Reports alliances with them and hx of positive experience. Tw connected with pt's employer. 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 Medication Compliance: Yes Side effects from medications: No Attending Groups: Yes Review of Systems Acute medical concerns: No Review of Systems Review of Systems Denies Mental Status Exam Mental Status Exam Patient Appearance: Appropriate Patient Orientation: Person, Place, Time and Situation Level of Consciousness: Alert Patient Behavior: Talkative and Good Eye Contact Mood Description: Appropriate Affect Description: Appropriate Patient Cognition Impaired: No Ability to Follow Directions: Good Speech Pattern: Spontaneous Speech Memory Description: Intact Hallucinations: None Delusions: Not Present Perceptual Disturbances: Depersonalization and Derealization Thought Process: Intact Thought Content: positive for Intact, positive for Circumstantial and positive for Suicidal Ideation (denies on admit) Depressive Symptoms: Thoughts of /Suicide (denies on admit) Judgement: Good Diagnostics Vital Signs (24Hr): Vital Signs - 24 hr 10/21/24 20:00 10/22/24 07:40 Temperature 98.6 F 97.2 F Pulse Rate 106 H 89 Respiratory Rate 16 Blood Pressure 112/74 98/55 L Pulse Oximetry 99 98 Oxygen Delivery Method Room Air Room Air BMI result Body Mass Index 18.7 Labs 10/16/24 20:25 10/16/24 20:26 Labs: Laboratory Results - last 48 hr 10/20/24 08:35 Vitamin B12 1253 H Folate 10.1 Medications Medications Current Medications Acetaminophen (Acetaminophen 325 Mg Tablet) 650 mg PO Q6H PRN PRN Reason: Headache/Pain, Scale 1-10 Al Hydroxide/Mg Hydroxide (Magnesium Hydrox/Alum Hydrox 30 Ml Oral.Susp) 30 ml PO Q6H PRN PRN Reason: Heartburn/Nausea Cyanocobalamin (Cyanocobalamin (Vitamin B-12) 1,000 Mcg Tablet) 1,000 mcg PO DAILY [facility] Last Admin: 10/22/24 08:52 Dose: 1,000 mcg Diphenhydramine HCl (Diphenhydramine Hcl 25 Mg Capsule) 50 mg PO BEDTIME PRN PRN Reason: sleep Last Admin: 10/21/24 22:08 Dose: 50 mg Hydroxyzine HCl (Hydroxyzine Hcl 25 Mg Tablet) 25 mg PO Q6H PRN PRN Reason: mild anxiety Last Admin: 10/19/24 21:03 Dose: 25 mg Magnesium Hydroxide (Milk Of Magnesia 30 Ml Oral.Susp) 30 ml PO DAILY PRN PRN Reason: Constipation Nicotine Polacrilex (Nicotine Polacrilex 2 Mg Gum) 4 mg BUCCAL Q2H PRN PRN Reason: Nicotine Cravings Nitrofurantoin Macrocrystals (Nitrofurantoin Monohyd/M-Cryst 100 Mg Capsule) 100 mg PO BID [facility] Last Admin: 10/22/24 08:52 Dose: 100 mg Olanzapine (Olanzapine 2.5 Mg Tablet) 2.5 mg PO BID PRN PRN Reason: picking/excoriation sx Last Admin: 10/22/24 09:10 Dose: 2.5 mg Ondansetron HCl (Ondansetron Odt 4 Mg Tab.Rapdis) 4 mg TRANSLINGU Q6H PRN PRN Reason: Nausea and Vomiting Last Admin: 10/20/24 18:53 Dose: 4 mg Venlafaxine HCl (Venlafaxine Hcl Er 75 Mg Cap.Er.24h) 75 mg PO DAILY [facility] Last Admin: 10/22/24 08:52 Dose: 75 mg Venlafaxine HCl (Venlafaxine Hcl Er 150 Mg Cap.Er.24h) 150 mg PO DAILY [facility] Last Admin: 10/22/24 08:52 Dose: 150 mg Allergies Allergies Allergy/AdvReac Type Severity Reaction Status Date / Time apple Allergy Itching Verified 10/16/24 19:43 carrot Allergy Itching Verified 10/16/24 19:43 Assessment & Plan Assessment & Plan (1) PTSD (post-traumatic stress disorder): Status: Acute Code(s): F43.10 - Post-traumatic stress disorder, unspecified (2) ADHD: Status: Acute Code(s): F90.9 - Attention-deficit hyperactivity disorder, unspecified type (3) Cannabis dependence: Status: Acute Code(s): F12.20 - Cannabis dependence, uncomplicated Plan Admit, CV, 15 minute checks Pt asks not to use stimulant as they only use it when working. Collateral Contact Encourage milieu participation Pt has interest in PHP upon discharge Diagnostics as needed. 10/22: Pt will discharge 10/23 to her cousin's home and will proceed with PHP referral to [facility] next week. FMLA submitted. Barak prn will be sent to her pharmacy to assist with grounding prn. Pt will call/return if needed. Patient educated on: medication risk/benefits Informed Consent: understands Reason for continued inpatient stay Substantial Risk for: stable for discharge Time Spent With Patient Time: Total time managing care of this patient today ____ minutes.
[2024-10-22 10:16] VITALS: BMI 18.9
[2024-10-22 20:00] VITALS: BP 120/87; PULSE 108; RESP 18; TEMP 36.7; O2SAT 100
[2024-10-22] MEDS: diphenhydrAMINE HCL 25 MG CAPSULE 50 MG PO (21:17)
[2024-10-23 08:00] VITALS: BP 120/71; PULSE 90; RESP 20; TEMP 36.6; O2SAT 100
[2024-10-23] MEDS: Cyanocobalamin (Vitamin B-12) 1,000 MCG TABLET 1000 MCG PO (08:27)
[2024-10-23] MEDS: Nitrofurantoin Monohyd/M-Cryst 100 MG CAPSULE PO (08:27)
[2024-10-23] MEDS: Venlafaxine HCl ER 150 MG CAP.ER.24H PO (08:28)
[2024-10-23] MEDS: Venlafaxine HCl ER 75 MG CAP.ER.24H PO (08:28)
[2024-10-23] MEDS: OLANZapine 2.5 MG TABLET PO (08:31)
== END 2024-10-23 11:25 | disposition home or self-care (01) | DRG 755 ==
LOC: HO.ED 20:26 → HO.PM5 10-19 13:08
PROVIDERS: Physician Assistant Medical; Admitting Provider Clinical Nurse Specialist Psychiatric/Mental Health, Adult; Emergency Provider Internal Medicine; Visit Provider Clinical Nurse Specialist Psychiatric/Mental Health, Adult
DX: F43.10 Post-traumatic stress disorder, unspecified (principal); R45.851 Suicidal ideations; F19.90 Other psychoactive substance use, unspecified, uncomplicated; F90.9 Attention-deficit hyperactivity disorder, unspecified type; F12.20 Cannabis dependence, uncomplicated; Z79.899 Other long term (current) drug therapy
CPT/HCPCS: 36415; 80053; 80061; 80143; 80179; 80307; 81001; 81025; 82607; 82746; 83036; 83690; 83735; 84439; 84443; 85025; 87086; 93005; 99285; S9485

== ENCOUNTER → 2024-10-19 09:07 | Outpatient (BNV) | payer OTHER, SELFPAY | PROVIDERS: Admitting Provider Clinical Nurse Specialist Psychiatric/Mental Health, Adult; Emergency Provider Internal Medicine; Visit Provider Internal Medicine | DX: R00.0 Tachycardia, unspecified (principal) | CPT/HCPCS: 93010 ==

== ENCOUNTER → 2024-10-19 12:53 | Outpatient (BNV) | payer OTHER, SELFPAY | PROVIDERS: Admitting Provider Clinical Nurse Specialist Psychiatric/Mental Health, Adult; Emergency Provider Internal Medicine; Visit Provider Clinical Nurse Specialist Psychiatric/Mental Health, Adult | DX: F12.20 Cannabis dependence, uncomplicated (principal); F43.11 Post-traumatic stress disorder, acute; F90.9 Attention-deficit hyperactivity disorder, unspecified type | CPT/HCPCS: 99232 ==